=== PATIENT | female | born 2005 | race Caucasian/White ===

== ENCOUNTER 2023-01-18 09:25 | Emergency (ER) | payer BC, SELFPAY ==
[2023-01-18 09:31] VITALS: BP 113/79; PULSE 104; RESP 16; TEMP 36.2; O2SAT 98
--- NOTE | 2023-01-18 09:50 | ED.SKABFB ---
HPI - Skin/Abscess/Foreign Bdy General Time Seen by Provider: 09:50 Date Seen: 01/18/23 Chief complaint: Skin/Abscess/Foreign Body Stated complaint: Cyst on buttocks Time Seen by Provider: 01/18/23 09:50 Source: patient and RN notes reviewed Mode of arrival: ambulatory Limitations: no limitations History of Present Illness HPI narrative: Patient is a 18-year-old female coming in with complaint of a right cyst in her buttock area. She has had a history of 1 before but it seemed to go away on its own. She denies any fevers chills, states she is up-to-date on immunizations. She is on contraception and has not missed any doses, no reasonable chance for . She has no antibiotic allergies, no history of MRSA. She states this is increasing painful, is hurting. This does not seem to be resolving on its own. Related Data Home Medications Medication Instructions Recorded Confirmed L norgest/E estradiol-E estrad 1 tab PO DAILY 11/16/22 01/18/23 0.15 mg-30 mcg (84)/10 mcg(7) tabs,3mos ([place]) Previous Rx's Medication Instructions Recorded amoxicillin 875 mg-potassium 1 tab PO BID #14 tabs 01/18/23 clavulanate 125 mg tablet Allergies Allergy/AdvReac Type Severity Reaction Status Date / Time alix Allergy edema Verified 01/18/23 09:34 Review of Systems Narrative: As per HPI PFSH PFSH Social History Smoking Status: Never smoker Do you use any of these nicotine containing products: None Second hand tobacco smoke exposure: No How often do you have a drink containing alcohol: never AUDIT-C Alcohol total score: 0 Non-prescribed substance use: denies use Exam Narrative: Exam Narrative: Very pleasant 18-year-old female is alert interactive no apparent distress sitting on the bed when I come in to exam room 7. On inspection, she has erythematous raised fluctuant area on the inner reflection of her right gluteus. It is about 2 cm diameter, very fluctuant in the center. Patient is consented on incision and drainage. 2 mL of lidocaine with epinephrine was injected locally. A 11 blade was used to make a stab incision, we could purulent material was expressed, culture was obtained. Patient did tolerate the procedure well. Const: Vital Signs, click to edit/add: Vital Signs - 24 hr 01/18/23 09:31 Temperature 97.1 F L Pulse Rate [Right Pulse Oximeter] 104 H Respiratory Rate 16 Blood Pressure [Ri ght Upper Arm] 113/79 Pulse Oximetry 98 Oxygen Delivery Me thod Room Air Documenting provider has reviewed patient's vital signs: yes Course Vital Signs Vital signs: Initial Vital Signs Temperature 97.1 F L 01/18/23 09:31 Temperature Source Temporal Artery Scan 01/18/23 09:31 Pulse Rate 104 H 01/18/23 09:31 Pulse Rhythm Regular 01/18/23 09:31 Pulse Strength 3+ Normal 01/18/23 09:31 Respiratory Rate 16 01/18/23 09:31 Blood Pressure 113/79 01/18/23 09:31 Blood Pressure Mean 90 01/18/23 09:31 Blood Pressure Position Sitting 01/18/23 09:31 Pulse Oximetry 98 01/18/23 09:31 Oxygen Delivery Method Room Air 01/18/23 09:31 Vital Signs Temperature 97.1 F L 01/18/23 09:31 Pulse Rate 104 H 01/18/23 09:31 Respiratory Rate 16 01/18/23 09:31 Blood Pressure 113/79 01/18/23 09:31 Pulse Oximetry 98 01/18/23 09:31 Oxygen Delivery Method Room Air 01/18/23 09:31 Temperature 97.1 F L 01/18/23 09:31 Pulse Rate 104 H 01/18/23 09:31 Respiratory Rate 16 01/18/23 09:31 Blood Pressure 113/79 01/18/23 09:31 Pulse Oximetry 98 01/18/23 09:31 Oxygen Delivery Method Room Air 01/18/23 09:31 Critical Care Time Critical Care Time Critical Care Time: No Discharge Plan Discharge Clinical Impression: Abscess of buttock, right Patient Disposition: Home, Self-Care Condition: Stable Instructions: Abscess (ED), Incision and Drainage (ED) Additional Instructions: May need to use protective undergarments like a pad until this stops draining. Do recommend doing warm tub bath once to twice daily for the next few days, may shower as usual as needed. Start oral antibiotics and take as prescribed. We will let you know if the culture grows anything that would require a change in antibiotics. May need to use some Tylenol and/or ibuprofen for pain control, follow bottle directions for dosing. If you feel the area on the buttock is becoming more painful, redness is increasing, develops fevers with this, do need to be re-evaluated. Activity Level: Activity as Tolerated Discharge Diet: Regular Prescriptions: New amoxicillin-pot clavulanate 875-125 mg tablet 1 tab PO BID Qty: 14 0RF No Action L norgest/e.estradiol-e.estrad [[place]] 0.15 mg-30 mcg (84)/10 mcg (7) tablets,dose pack,3 month 1 tab PO DAILY Follow Up/Referrals: Alondra Vaughn PA-C [Primary Care Provider] - Stand Alone Forms: [facility] Info Instructions
--- NOTE | 2023-01-18 10:17 | ED.NURSE ---
Wound covered w/ telfa and papertape. Pt provided a additional supply for home care.
== END 2023-01-18 10:26 | disposition home or self-care (01) ==
PROVIDERS: Emergency Provider Family Medicine; PCP Student in an Organized Health Care Education/Training Program
DX: L02.31 Cutaneous abscess of buttock (principal)
CPT/HCPCS: 10060; 87070; 87186; 99283